=== PATIENT | male | born 1960 | race Caucasian/White ===

== ENCOUNTER 2016-10-17 04:42 | Observation (INO) | payer OTHER ==
[~2016-10-17] VITALS: Ht 193 cm; Wt 114.0 kg
--- NOTE | 2016-10-17 07:34 | DIAGNOSTIC IMAGING REPORT ---
PROCEDURE: CTA THORAX WITH CONTRAST INDICATION: SYNCOPE HIGH D-DIMER TECHNIQUE: 90 ml of Isovue 370 was injected intravenously and axial images were obtained of the chest with 3D sagittal and coronal MIP reconstructions. COMPARISON: Chest x-ray Performed the same day FINDINGS: Normal opacification of the pulmonary arterial tree without filling defect. The central pulmonary arteries are normal caliber. Thoracic aorta is normal caliber. The great vessels demonstrate a normal variant bovine arch are. Heart size is normal. No pericardial effusion. No adenopathy or mediastinal masses. The esophagus is normal in caliber without hiatal hernia. The thyroid gland contains a 9 mm nodule with coarse peripheral calcification in the lower pole of the left thyroid. Minor bibasilar atelectasis. Lungs are otherwise clear. The airway is patent and branches normally. No pleural effusions or pneumothorax. Osseous structures are intact. The images obtained of the upper abdomen and demonstrates multiple small dependently layering gallstones. Mild hepatic steatosis. IMPRESSION: 1. No pulmonary embolus. 2. No acute process in the chest. 3. 9 mm left lower pole thyroid nodule. Consider routine ultrasound evaluation. 4. Cholelithiasis. 5. Findings called to the emergency room.
--- NOTE | 2016-10-17 07:36 | DIAGNOSTIC IMAGING REPORT ---
PROCEDURE: XR CHEST 1 VIEW INDICATION: SHORTNESS OF BREATH TECHNIQUE: Single view chest. 05:37 hours COMPARISON: None FINDINGS: Normal cardiomediastinal contour. There is an azygos lobe fissure. Low lung volumes. Eventration of the right hemidiaphragm. The visible lung hartley are clear. Osseous structures are intact. IMPRESSION: 1. No evidence of acute cardiopulmonary disease.
--- NOTE | 2016-10-17 07:38 | ED ORDER SUMMARY ---
..... Patient: LORENZO SAVAGE OrderSheet [facility] VisitID: [id number] [address] [place] [address] 56y, M Registration Date/Time: 10/17/2016 ORDER SHEET Weight: 120.2 kg (stated) Allergies: No Known Drug Allergy GENERAL ORDERS: CBC w Diff Urgent (05:02 10/17/2016 DDavis R.N. per protocol) (5:02 DDavis R.N.) CMP Urgent (05:02 10/17/2016 DDavis R.N. per protocol) (5:02 DDavis R.N.) EKG - ER Stat (05:02 10/17/2016 DDavis R.N. per protocol) (Ack 5:03 DDavis R.N.) (5:05 CBradburn R.N.) - (orthostatic BP/P) (05:18 10/17/2016 Bakari GOODEN) (5:52 CBradburn R.N.) Troponin-I Urgent (05:19 10/17/2016 Bakari GOODEN) (5:20 CBradburn R.N.) CPK Urgent (05:19 10/17/2016 Bakari GOODEN) (5:22 CBradburn R.N.) Chest 1V Urgent (05:19 10/17/2016 Bakari GOODEN) (Ack 5:25 CHagerty ER Physical Trainer) (5:40 GUnger) TSH Urgent (05:19 10/17/2016 Bakari GOODEN) (5:22 CBradburn R.N.) TSH Urgent (05:19 10/17/2016 Bakari GOODEN) (Cancelled: Duplicate Order5:24 CHagerty ER Physical Trainer) CRP Urgent (05:19 10/17/2016 Bakari GOODEN) (5:25 CHagerty ER Physical Trainer) PCT (Procalcitonin) Urgent (05:19 10/17/2016 Bakari GOODEN) (5:20 CBradburn R.N.) D-Dimer Urgent (05:54 10/17/2016 Bakari GOODEN) (Ack 6:03 CHagerty ER Physical Trainer) (6:17 CBradburn R.N.) CTA Thorax w Cont (Yes) (pending) Urgent (06:19 10/17/2016 Bakari GOODEN) (Ack 6:24 Beka ER Physical Trainer) (6:37 Conchis Herring) CT Head wo Cont Urgent (07:42 10/17/2016 Bakari GOODEN) (Ack 7:44 [facility]) MEDICATION ORDERS: IV FLUIDS: IV Saline Lock (05:02 10/17/2016 Rebecca R.NJas per protocol) (5:02 Rebecca Berg.NJas) Toradol IV 30 mg (NOW) (07:38 10/17/2016 Bakari GOODEN) (7:45 Americo R.N.) Dilaudid IV 0.5 mg (NOW) (07:38 10/17/2016 Bakari GOODEN) (7:45 Americo R.N.) ORDER SHEET NOTES: [Electronically signed by Osmin Wilkinson MD (21:58 10/18/2016)] [Electronically signed by Nita Duran R.N. (10:52 10/20/2016)] [Electronically locked/signed by Nita Duran R.N. (10:52 10/20/2016)]
--- NOTE | 2016-10-17 07:38 | ED CLINICAL REPORT ---
Clinical Report - Physicians/Mid Levels [facility] [address] [place] [address] 10/17/2016 4:47 Patient: LORENZO SAVAGE Time Seen: 05:06 Oct 17 2016. Arrived- By private vehicle. Historian- patient. HISTORY OF PRESENT ILLNESS Chief Complaint: MULTIPLE SYNCOPAL EPISODES. The patient has recovered. This occurred today. (( pt got up about 3 am states he felt his BG was a little low, went to get juice and "passed out" then had 2 more syncopal episodes after that,). He has had several recent falling episodes (today). He sustained an injury to the chest. ( right rib pain, abrasion to forehead).). Event was witnessed. The patient had preceding symptoms of light-headedness. At time of event, he was standing. The patient felt faint and lost consciousness. Experienced repeated episodes. Location of injuries- chest. Currently he feels normal. No weakness currently. No nausea currently. No headache currently. Similar symptoms previously: None. Recent medical care: Not recently seen/assessed. REVIEW OF SYSTEMS No headache, chest pain, palpitations, abdominal pain or vomiting. No diarrhea, black stools, bloody stools or fever. No sore throat or throat, difficulty breathing or difficulty with urination. No skin rash or rash, enlarged lymph nodes, cough or diabetic symptoms. No easy bruising. The patient has had dizziness, weakness, and fatigue. All systems otherwise negative, except as recorded above. PAST HISTORY ( Hypertension. Diabetes Mellitus. - ADDITIONAL SURGERIES: Plantar facitis.). Medications: Acetaminophen-Codeine #3 Oral. Levothyroxine Sodium Oral 225 mcg, daily. HumaLOG Subcutaneous 15 units, before meals. Lantus Subcutaneous 30 units, noon. Losartan Potassium Oral, daily. Allergies: No Known Drug Allergy. SOCIAL HISTORY Heavy tobacco smoker (cigarette)- less than 1 pack per day. No alcohol use or drug use. ADDITIONAL NOTES The nursing notes have been reviewed. PHYSICAL EXAM Vital Signs: 10/17/2016 04:49 BP: 125/77. HR: 77. RR: 18. O2 saturation: 78%. Temp: 97.4 F. Pain level now: 7/10. Appearance: Alert. No acute distress. Eyes: Pupils equal, round and reactive to light. No nystagmus. Extraocular movements normal. ENT: Normal ENT inspection. TM's normal. Moist mucous membranes. Pharynx normal. Neck: Normal inspection. Neck supple. No meningeal signs. CVS: Normal heart rate and rhythm. Heart sounds normal. Pulses normal. No cardiac murmur. Respiratory: No respiratory distress. Breath sounds normal. Abdomen: Soft and nontender. Back: Normal inspection. Skin: Skin warm. Normal skin color. No rash. Extremities: Extremities exhibit normal ROM. No lower extremity edema. Neuro: Alert. Oriented X 3. Mood/affect normal. Speech normal. Cranial nerves normal (as tested). No cerebellar findings. No motor deficit. No sensory deficit. Reflexes normal. LABS, X-RAYS, AND EKG Chest X-ray: (cardiac fat pad vs infiltrate.). Views: AP (portable). Technique: good. The X-rays were independently viewed by me and interpreted contemporaneously by me. Prior films were not available for comparison. CT Head: No acute disease. Chest CT: Lungs normal. Great vessels normal. Mediastinum normal. (gallstones, small thyroid nodule appears benign.). Chest CT performed with contrast. The study was independently viewed by me, interpreted by the radiologist and discussed with the radiologist. Laboratory Tests: CBC w Diff: (YOHANA: 10/17/2016 04:55) ( MsgRcvd 10/17/2016 05:10) Final results Test Result Flag Units (Reference) WHITE BLOOD COUNT 9.9 K/uL (4.5-11.5) RED BLOOD COUNT 4.92 M/uL (4.50-5.90) HEMOGLOBIN 15.1 gm/dL (13.5-17.5) HEMATOCRIT 44.9 % (41.0-53.0) MEAN CELL VOLUME 91 fL (80-100) MEAN CORPUSCULAR HGB 31 pg (26-34) MEAN CORPUSCULAR HGB CONC 34 g/dL (31-37) RED CELL DISTRIBUTION WIDTH 13.5 % (11.6-14.8) PLATELET COUNT 167 K/uL (150-400) NEUTROPHIL % 71.9 % (50-75) LYMPH % 19.7 L % (25-40) MONO % 6.4 % (3-14) EOSINOPHIL % 1.6 % (0-4) BASOPHIL % 0.4 % (0-2) [id number]: (YOHANA: 10/17/2016 04:55) ( [facility] 10/17/2016 06:12) Final results Test Result Flag Units (Reference) D-DIMER QUANTITATIVE 1.08 H ug/mLFEU (0.27-0.52) The primary value of this quantitative assay relates toits negative predictive value (i.e. exclusion) of pulmonaryembolism/deep vein thrombosis/DIC.Elevated levels of d-dimer may also occur with:, age, cancer, inflammation, liver disease,post-op, infection, hematoma, coronary disease, peripheralarteriopathy, bleeding disorders and thrombolytic treatment.Results should be correlated with other clinical andradiological data.Testing Methodology: Latex Immunoassay [id number]: (YOHANA: 10/17/2016 04:55) ( [facility] 10/17/2016 05:41) Final results Test Result Flag Units (Reference) C-REACTIVE PROTEIN < 0.2 mg/dL (0.0-0.9) [id number]: (YOHANA: 10/17/2016 04:55) ( [facility] 10/17/2016 06:05) Final results Test Result Flag Units (Reference) PROCALCITONIN <0.5 ng/mL (0-0.5) PCT Concentration: Interpretation : Risk/option for action PCT <=0.5 ng/mL : Systemic : Low risk forinfection(sepsis): progression to severeis not likely. : systemic infection.Local bacterial : CAUTION-PCT levelsinfection is : below 0.5 ng/mL do notpossible. : exclude an infection,because localizedinfections (withoutsystemic signs) may beassociated with suchlow levels. If PCT ismeasured very earlyafter a bacterialchallenge (usually <6hours), these valuesmay still be low. Inthis case PCT shouldbe re-assessed 6-24hours later. PCT >0.5 and : Systemic infection: Moderate risk for<= 2 ng/mL : (sepsis) is : progression to severepossible, but : systemic infection.other conditions : The patient should beare known to : closely monitoredelevate PCT. : both clinically andby re-assessing PCTwithin 6-24 hours. PCT > 2 ng/mL : Systemic infection: High risk for(sepsis) is likely: progression to severeunless other : systemic infection.causes are known. : PCT >= 10 ng/mL : Important systemic: High likelihood ofinflammatory : severe sepsis orresponse, almost : septic shock.exclusively due to:severe bacterial :sepsis or septic :shock. : TSH: (YOHANA: 10/17/2016 04:55) ( MsgRcvd 10/17/2016 05:44) Final results Test Result Flag Units (Reference) THYROID STIMULATING HORMONE 10.694 H uIU/mL (0.30-3.74) CPK: (YOHANA: 10/17/2016 04:55) ( IngRcvd 10/17/2016 05:44) Final results Test Result Flag Units (Reference) CPK 160 U/L (24-260) TROPONIN I <0.05 L ng/mL (0.00-1.5) TROPONIN REFERENCE RANGE:<0.1 NEGATIVE0.1-1.5 INDETERMINANT>1.5 POSITIVE CMP: (YOHANA: 10/17/2016 04:55) ( MsgRcvd 10/17/2016 05:22) Final results Test Result Flag Units (Reference) GLUCOSE 234 H mg/dL (70-110) BUN 18 mg/dL (7-18) CREATININE 1.2 mg/dL (0.6-1.3) Estimated GFR >60 mL/min Estimated GFR- >60 mL/min Note: Persistent reduction over 3 months in eGFR<60 mL/min/1.73 m2 defines CKD. Patients with eGFR values>=60 mL/min/1.73 m2 may also have CKD if evidence ofpersistent proteinuria. Additional information may be foundat www.kidney.org. SODIUM 140 mmol/L (136-145) POTASSIUM 3.8 mmol/L (3.5-5.1) CHLORIDE 101 mmol/L (98-107) CARBON DIOXIDE 28 mmol/L (21-32) CALCIUM 8.5 mg/dL (8.5-10.1) TOTAL PROTEIN 7.3 g/dL (6.4-8.2) ALBUMIN 3.9 g/dL (3.3-5.0) BILIRUBIN, TOTAL 0.7 mg/dL (0.0-1.0) ALKALINE PHOSPHATASE 55 U/L (46-116) AST (SGOT) 17 U/L (15-37) ALT (SGPT) 29 U/L (12-78) . PROGRESS AND PROCEDURES Course of Care: Not orthostatic Cardiopulmonary work-up and blood/urine results show no definitve reason for multiple episodes of syncope. Will admit for further observation. Dr Lazcano requests a CT of the head. Ordered on T system. Discussed case with on-call health care provider, (Neno). Reviewed test results. Agreed upon treatment plan and decision to admit. Health care provider will see patient in ED. Patient/family counseled. Old medical records ordered. Disposition orders written. Disposition: Admitted to Acute Care. CLINICAL IMPRESSION Syncope of unknown cause .12 lead EKG performed. (Electronically signed by Osmin Wilkinson MD 10/18/2016 21:58)
--- NOTE | 2016-10-17 07:38 | ED ORDER SUMMARY ---
..... Patient: LORENZO SAVAGE OrderSheet [facility] VisitID: [id number] [address] [place] [address] 56y, M Registration Date/Time: 10/17/2016 ORDER SHEET Weight: 120.2 kg (stated) Allergies: No Known Drug Allergy GENERAL ORDERS: CBC w Diff Urgent (05:02 10/17/2016 DDavis R.N. per protocol) (5:02 DDavis R.N.) CMP Urgent (05:02 10/17/2016 DDavis R.N. per protocol) (5:02 DDavis R.N.) EKG - ER Stat (05:02 10/17/2016 DDavis R.N. per protocol) (Ack 5:03 DDavis R.N.) (5:05 CBradburn R.N.) - (orthostatic BP/P) (05:18 10/17/2016 Bakari GOODEN) (5:52 CBradburn R.N.) Troponin-I Urgent (05:19 10/17/2016 Bakari GOODEN) (5:20 CBradburn R.N.) CPK Urgent (05:19 10/17/2016 Bakari GOODEN) (5:22 CBradburn R.N.) Chest 1V Urgent (05:19 10/17/2016 Bakari GOODEN) (Ack 5:25 CHagerty ER General Production Worker) (5:40 GUnger) TSH Urgent (05:19 10/17/2016 Bakari GOODEN) (5:22 CBradburn R.N.) TSH Urgent (05:19 10/17/2016 Bakari GOODEN) (Cancelled: Duplicate Order5:24 CHagerty ER General Production Worker) CRP Urgent (05:19 10/17/2016 Bakari GOODEN) (5:25 CHagerty ER General Production Worker) PCT (Procalcitonin) Urgent (05:19 10/17/2016 Bakari GOODEN) (5:20 CBradburn R.N.) D-Dimer Urgent (05:54 10/17/2016 Bakari GOODEN) (Ack 6:03 CHagerty ER General Production Worker) (6:17 CBradburn R.N.) CTA Thorax w Cont (Yes) (pending) Urgent (06:19 10/17/2016 Bakari GOODEN) (Ack 6:24 Beka ER General Production Worker) (6:37 Conchis Herring) CT Head wo Cont Urgent (07:42 10/17/2016 Bakari GOODEN) (Ack 7:44 [facility]) MEDICATION ORDERS: IV FLUIDS: IV Saline Lock (05:02 10/17/2016 Rebecca R.NJas per protocol) (5:02 Rebecca Berg.NJas) Toradol IV 30 mg (NOW) (07:38 10/17/2016 Bakari GOODEN) (7:45 Americo R.N.) Dilaudid IV 0.5 mg (NOW) (07:38 10/17/2016 Bakari GOODEN) (7:45 Americo R.N.) ORDER SHEET NOTES: [Electronically signed by Osmin Wilkinson MD (21:58 10/18/2016)] [Electronically signed by Nita Duran R.N. (10:52 10/20/2016)] [Electronically locked/signed by Nita Duran R.N. (10:52 10/20/2016)]
--- NOTE | 2016-10-17 07:38 | ED NURSING NOTES ---
Clinical Report - Nurses [facility] [address] [place] [address] 10/17/2016 4:47 Patient: LORENZO SAVAGE TRIAGE Triage time 04:49. Acuity: LEVEL 2. Chief Complaint: SYNCOPE (x 3 in 1 hour). --05:01 Tiana Corea R.N. 04:49 10/17/16. BP: 125/77 taken on the left arm, while lying. HR: 77 (regular and normal rate). RR: 18. O2 saturation: 78%. Temp: 97.4 F. Pain level now: 12/08. --05:01 Tiana Corea R.N. Weight: 120.2 kg stated. Height/Length: 76 inches Per Patient. BMI: 32.3. --04:52 Tiana Corea R.N. Medications Losartan Potassium Oral, daily. --04:53 Tiana Corea R.N. Lantus Subcutaneous 30 units, noon. --04:53 Tiana Corea R.N. HumaLOG Subcutaneous 15 units, before meals. --04:54 Tiana Corea R.N. Levothyroxine Sodium Oral 225 mcg, daily. --04:55 Tiana Corea R.N. Acetaminophen-Codeine #3 Oral. --04:56 Tiana Corea R.N. Allergies No Known Drug Allergy. --04:57 Tiana Corea R.N. History Arrived by private vehicle. Historian: patient. Accompanied by family. Primary physician (none). This started today. ( pt got up about 3 am states he felt his BG was a little low, went to get juice and "passed out" then had 2 more syncopal episodes after that,). He has had several recent falling episodes (today). He sustained an injury to the chest. ( right rib pain, abrasion to forehead). SOCIAL HX: Heavy tobacco smoker (cigarette)- 1 pack per day. No alcohol use or drug use. No infectious disease exposure. ABUSE ASSESSMENT: No report of abuse. SELF HARM ASSESSMENT: A self harm assessment was performed. The patient answered "no" to the question "Have you recently felt down, depressed, or hopeless?", "Have you noticed less interest or pleasure in doing things?", "Do you have thoughts of harming or killing yourself?", "Are you here because you tried to hurt yourself?", "Have you ever tried to hurt yourself before today?", "Have you recently had thoughts about harming or killing others?" and "Do you have any dangerous items in your possession?". FALL RISK ASSESSMENT: Fall risk assessment completed. No fall risk identified. NUTRITIONAL RISK ASSESSMENT: The nutritional risk assessment revealed no deficiencies. FUNCTIONAL ASSESSMENT: Functional assessment: no impairments noted. LEARNING NEEDS ASSESSMENT: The learning needs assessment revealed no barriers. SKIN INTEGRITY ASSESSMENT: Skin integrity risk assessment completed. No skin integrity risk identified. --05:01 Tiana Corea R.N. PROBLEMS: Hypertension. Diabetes Mellitus. --04:58 Tiana Corea R.N. ADDITIONAL SURGERIES: Plantar facitis. --04:58 Tiana Corea R.N. Interventions ID band on patient. --05:01 Tiana Corea R.N. PHYSICAL ASSESSMENT To room via wheelchair. Baseline functional status: usually alert and oriented x4. Verbal response: usually clear and appropriate. Motor response: usually steady gait and moves all extremities equally GENERAL / NEURO / PSYCH: Awake. Oriented X 4. Alert. Appears in no acute distress. Speech normal. Mood/affect normal. Moves all extremities equally. No motor deficit. HEENT: No facial asymmetry noted. Pupils equal, round and reactive to light. EOM intact. Pharynx within normal limits. RESPIRATORY: Breath sounds within normal limits. Respirations not labored. CVS: Normal sinus rhythm noted. Capillary refill less than 2 seconds. SKIN: Skin is intact, warm and dry. --05:02 Tiana Corea R.N. NURSING PROGRESS NOTES Patient gowned. Two patient identifiers checked. Call light placed in reach. Side rails up x 2. Bed placed in lowest position. Brakes of bed on. --05:02 Tiana Corea R.N. Finger stick glucose: 232; performed by nurse. --05:02 Tiana Corea R.N. Patient ready for evaluation- chart flagged. --05:02 Tiana Corea R.N. 04:55 10/17/2016 Site #1 started via IV in the right antecubital space with an 20g angiocath, with aseptic technique and good blood return; one attempt. Blood drawn: rainbow set. Labeled in the presence of the patient and sent to the lab. Saline lock flushed with 10 mL saline. --05:02 Mor Jiang R.N. ED physician notified. --05:03 Mor Jiang R.N. EKG time: (0501). EKG was performed by a tech and shown to the ED physician. --05:27 Mei Diallo 05:52 10/17/16. BP: 98/56 taken on the left arm, while lying. HR: 85. O2 saturation: 100%. --05:54 Tiana Corea R.N. 05:55 10/17/16. BP: 108/65 taken on the left arm, while sitting. HR: 86. O2 saturation: 97%. --05:56 Tiana Corea R.N. 05:56 10/17/16. BP: 110/70 taken on the left arm, while standing. HR: 90 (regular). O2 saturation: 98% on room air. --05:59 Tiana Corea R.N. Overall patient status is the same- he states feels the same. GENERAL / NEURO / PSYCH: Alert. Oriented X 4. Affect appears normal. HEENT: Pupils equal, round and reactive to light. RESPIRATORY: No respiratory distress. SKIN: Skin is warm and dry. --05:59 Tiana Corea R.N. 06:33 10/17/16. BP: 113/75. HR: 82. RR: 18. O2 saturation: 98% on room air. Temp: deferred. Pain level now: 0/10. --06:36 Tiana Corea R.N. Patient transported to [place] by stretcher with tech. (06:35). --06:36 Tiana Corea R.N. Care transferred and report given (Ngozi SIMS). --07:20 Tiana Corea R.N. 07:45 10/17/2016 Toradol IVP 30 mg given over 2 minute(s) via site #1. Allergies verified and confirmed 5 rights. IV patency established. IV site checked: no pain, redness, or swelling. IV flushed thoroughly pre- and post-medication administration. --07:45 Ngozi Duran R.N. 07:45 10/17/2016 Dilaudid (HYDROmorphone HCl PF) IVP 0.5 mg given over 2 minute(s) via site #1. Allergies verified, confirmed 5 rights and sedative warning given to the patient and patient's roto mixer operator. IV patency established. IV site checked: no pain, redness, or swelling. IV flushed thoroughly pre- and post-medication administration. --07:45 Ngozi Duran R.N. 07:50 10/17/16. BP: 117/70. HR: 86. RR: 18. O2 saturation: 98%. Temp: 98.4 F. Pain level now 12/08. --07:50 Ngozi Duran R.N. ( H&P form given to patients who was at bedside to help fill out.). --08:19 Nazia May 09:04 10/17/16. BP: 114/66. HR: 82. RR: 18. O2 saturation: 96%. Temp: 98.6 F. Pain level now 09/08. --09:06 Ngozi Duran R.N. ( Report given to Latoya LEE). --09:23 Ngozi Duran R.N. 10:21 10/17/2016 Site #1 removed upon transfer. Catheter intact. Pressure dressing applied. --10:21 Ngozi Duran R.N. DISPOSITION / DISCHARGE Departure time: 10:00 Oct 17 2016. Condition at departure: improved. Admitted to Acute Care. --10:20 Ngozi Duran R.N. 10:18 10/17/16. BP: 107/61. HR: 86. RR: 18. O2 saturation: 98%. Temp: 98.6 F. Pain level now: 09/08. --10:20 Ngozi Duran R.N. Locked/Released at 10/20/2016 10:52 by Ngozi Duran R.N.
--- NOTE | 2016-10-17 07:38 | ED CLINICAL REPORT ---
Clinical Report - Physicians/Mid Levels [facility] [address] [place] [address] 10/17/2016 4:47 Patient: LORENZO SAVAGE Time Seen: 05:06 Oct 17 2016. Arrived- By private vehicle. Historian- patient. HISTORY OF PRESENT ILLNESS Chief Complaint: MULTIPLE SYNCOPAL EPISODES. The patient has recovered. This occurred today. (( pt got up about 3 am states he felt his BG was a little low, went to get juice and "passed out" then had 2 more syncopal episodes after that,). He has had several recent falling episodes (today). He sustained an injury to the chest. ( right rib pain, abrasion to forehead).). Event was witnessed. The patient had preceding symptoms of light-headedness. At time of event, he was standing. The patient felt faint and lost consciousness. Experienced repeated episodes. Location of injuries- chest. Currently he feels normal. No weakness currently. No nausea currently. No headache currently. Similar symptoms previously: None. Recent medical care: Not recently seen/assessed. REVIEW OF SYSTEMS No headache, chest pain, palpitations, abdominal pain or vomiting. No diarrhea, black stools, bloody stools or fever. No sore throat or throat, difficulty breathing or difficulty with urination. No skin rash or rash, enlarged lymph nodes, cough or diabetic symptoms. No easy bruising. The patient has had dizziness, weakness, and fatigue. All systems otherwise negative, except as recorded above. PAST HISTORY ( Hypertension. Diabetes Mellitus. - ADDITIONAL SURGERIES: Plantar facitis.). Medications: Acetaminophen-Codeine #3 Oral. Levothyroxine Sodium Oral 225 mcg, daily. HumaLOG Subcutaneous 15 units, before meals. Lantus Subcutaneous 30 units, noon. Losartan Potassium Oral, daily. Allergies: No Known Drug Allergy. SOCIAL HISTORY Heavy tobacco smoker (cigarette)- less than 1 pack per day. No alcohol use or drug use. ADDITIONAL NOTES The nursing notes have been reviewed. PHYSICAL EXAM Vital Signs: 10/17/2016 04:49 BP: 125/77. HR: 77. RR: 18. O2 saturation: 78%. Temp: 97.4 F. Pain level now: 7/10. Appearance: Alert. No acute distress. Eyes: Pupils equal, round and reactive to light. No nystagmus. Extraocular movements normal. ENT: Normal ENT inspection. TM's normal. Moist mucous membranes. Pharynx normal. Neck: Normal inspection. Neck supple. No meningeal signs. CVS: Normal heart rate and rhythm. Heart sounds normal. Pulses normal. No cardiac murmur. Respiratory: No respiratory distress. Breath sounds normal. Abdomen: Soft and nontender. Back: Normal inspection. Skin: Skin warm. Normal skin color. No rash. Extremities: Extremities exhibit normal ROM. No lower extremity edema. Neuro: Alert. Oriented X 3. Mood/affect normal. Speech normal. Cranial nerves normal (as tested). No cerebellar findings. No motor deficit. No sensory deficit. Reflexes normal. LABS, X-RAYS, AND EKG Chest X-ray: (cardiac fat pad vs infiltrate.). Views: AP (portable). Technique: good. The X-rays were independently viewed by me and interpreted contemporaneously by me. Prior films were not available for comparison. CT Head: No acute disease. Chest CT: Lungs normal. Great vessels normal. Mediastinum normal. (gallstones, small thyroid nodule appears benign.). Chest CT performed with contrast. The study was independently viewed by me, interpreted by the radiologist and discussed with the radiologist. Laboratory Tests: CBC w Diff: (YOHANA: 10/17/2016 04:55) ( MsgRcvd 10/17/2016 05:10) Final results Test Result Flag Units (Reference) WHITE BLOOD COUNT 9.9 K/uL (4.5-11.5) RED BLOOD COUNT 4.92 M/uL (4.50-5.90) HEMOGLOBIN 15.1 gm/dL (13.5-17.5) HEMATOCRIT 44.9 % (41.0-53.0) MEAN CELL VOLUME 91 fL (80-100) MEAN CORPUSCULAR HGB 31 pg (26-34) MEAN CORPUSCULAR HGB CONC 34 g/dL (31-37) RED CELL DISTRIBUTION WIDTH 13.5 % (11.6-14.8) PLATELET COUNT 167 K/uL (150-400) NEUTROPHIL % 71.9 % (50-75) LYMPH % 19.7 L % (25-40) MONO % 6.4 % (3-14) EOSINOPHIL % 1.6 % (0-4) BASOPHIL % 0.4 % (0-2) [id number]: (YOHANA: 10/17/2016 04:55) ( [facility] 10/17/2016 06:12) Final results Test Result Flag Units (Reference) D-DIMER QUANTITATIVE 1.08 H ug/mLFEU (0.27-0.52) The primary value of this quantitative assay relates toits negative predictive value (i.e. exclusion) of pulmonaryembolism/deep vein thrombosis/DIC.Elevated levels of d-dimer may also occur with:, age, cancer, inflammation, liver disease,post-op, infection, hematoma, coronary disease, peripheralarteriopathy, bleeding disorders and thrombolytic treatment.Results should be correlated with other clinical andradiological data.Testing Methodology: Latex Immunoassay [id number]: (YOHANA: 10/17/2016 04:55) ( [facility] 10/17/2016 05:41) Final results Test Result Flag Units (Reference) C-REACTIVE PROTEIN < 0.2 mg/dL (0.0-0.9) [id number]: (YOHANA: 10/17/2016 04:55) ( [facility] 10/17/2016 06:05) Final results Test Result Flag Units (Reference) PROCALCITONIN <0.5 ng/mL (0-0.5) PCT Concentration: Interpretation : Risk/option for action PCT <=0.5 ng/mL : Systemic : Low risk forinfection(sepsis): progression to severeis not likely. : systemic infection.Local bacterial : CAUTION-PCT levelsinfection is : below 0.5 ng/mL do notpossible. : exclude an infection,because localizedinfections (withoutsystemic signs) may beassociated with suchlow levels. If PCT ismeasured very earlyafter a bacterialchallenge (usually <6hours), these valuesmay still be low. Inthis case PCT shouldbe re-assessed 6-24hours later. PCT >0.5 and : Systemic infection: Moderate risk for<= 2 ng/mL : (sepsis) is : progression to severepossible, but : systemic infection.other conditions : The patient should beare known to : closely monitoredelevate PCT. : both clinically andby re-assessing PCTwithin 6-24 hours. PCT > 2 ng/mL : Systemic infection: High risk for(sepsis) is likely: progression to severeunless other : systemic infection.causes are known. : PCT >= 10 ng/mL : Important systemic: High likelihood ofinflammatory : severe sepsis orresponse, almost : septic shock.exclusively due to:severe bacterial :sepsis or septic :shock. : TSH: (YOHANA: 10/17/2016 04:55) ( MsgRcvd 10/17/2016 05:44) Final results Test Result Flag Units (Reference) THYROID STIMULATING HORMONE 10.694 H uIU/mL (0.30-3.74) CPK: (YOHANA: 10/17/2016 04:55) ( RigRcvd 10/17/2016 05:44) Final results Test Result Flag Units (Reference) CPK 160 U/L (24-260) TROPONIN I <0.05 L ng/mL (0.00-1.5) TROPONIN REFERENCE RANGE:<0.1 NEGATIVE0.1-1.5 INDETERMINANT>1.5 POSITIVE CMP: (YOHANA: 10/17/2016 04:55) ( MsgRcvd 10/17/2016 05:22) Final results Test Result Flag Units (Reference) GLUCOSE 234 H mg/dL (70-110) BUN 18 mg/dL (7-18) CREATININE 1.2 mg/dL (0.6-1.3) Estimated GFR >60 mL/min Estimated GFR- >60 mL/min Note: Persistent reduction over 3 months in eGFR<60 mL/min/1.73 m2 defines CKD. Patients with eGFR values>=60 mL/min/1.73 m2 may also have CKD if evidence ofpersistent proteinuria. Additional information may be foundat [email or web address]. SODIUM 140 mmol/L (136-145) POTASSIUM 3.8 mmol/L (3.5-5.1) CHLORIDE 101 mmol/L (98-107) CARBON DIOXIDE 28 mmol/L (21-32) CALCIUM 8.5 mg/dL (8.5-10.1) TOTAL PROTEIN 7.3 g/dL (6.4-8.2) ALBUMIN 3.9 g/dL (3.3-5.0) BILIRUBIN, TOTAL 0.7 mg/dL (0.0-1.0) ALKALINE PHOSPHATASE 55 U/L (46-116) AST (SGOT) 17 U/L (15-37) ALT (SGPT) 29 U/L (12-78) . PROGRESS AND PROCEDURES Course of Care: Not orthostatic Cardiopulmonary work-up and blood/urine results show no definitve reason for multiple episodes of syncope. Will admit for further observation. Dr Lazcano requests a CT of the head. Ordered on T system. Discussed case with on-call health care provider, (Neno). Reviewed test results. Agreed upon treatment plan and decision to admit. Health care provider will see patient in ED. Patient/family counseled. Old medical records ordered. Disposition orders written. Disposition: Admitted to Acute Care. CLINICAL IMPRESSION Syncope of unknown cause .12 lead EKG performed. (Electronically signed by Osmin Wilkinson MD 10/18/2016 21:58)
--- NOTE | 2016-10-17 08:33 | DIAGNOSTIC IMAGING REPORT ---
PROCEDURE: CT HEAD WITHOUT CONTRAST INDICATION: SYNCOPE TECHNIQUE: Axial CT images were acquired through the head. Coronal and sagittal reformations were created. Contrast present in the intracranial vessels due to prior study performed earlier the same day. COMPARISON: None. FINDINGS: No intracranial hemorrhage or extraaxial fluid collections. Ventricles are normal in size, shape and position. There is no mass, mass effect or midline shift. The mosley-white matter differentiation is normal. There is no edema. The calvarium is intact. The paranasal sinuses and mastoid air cells are normally aerated. The extracranial soft tissues and orbits are normal. IMPRESSION: 1. No CT evidence of acute intracranial process. 2. Findings discussed with Dr. Wilkinson at 08:[address] scans at this facility use dose modulation, iterative reconstruction, and/or weight-based dosing when appropriate to reduce radiation dose to as low as reasonably achievable.
[2016-10-17 10:55] VITALS: BP 119/75
--- NOTE | 2016-10-17 10:55 | NUR ---
PT ARRIVED TO ROOM 204-B FROM ED ALERT, APPROPRIATE AND COOPERATIVE.
--- NOTE | 2016-10-17 10:58 | HISTORY AND PHYSICAL ---
ADMITTED: 10/17/2016 CHIEF COMPLAINT: Syncope HISTORY OF PRESENT ILLNESS: This is a 56-year-old white male who woke up at 3 a.m. last night and tried to go to the bathroom, but felt a little bit lightheaded and had to hold on the goodwin. He made it to the bathroom but later on he finds himself on the floor, able to get up in the bathroom, but passed out again in the bathtub, was found by his and was able to walk by help of his to the bed, but after a while and drinking some orange juice, the patient went outside to smoke cigarette, but passed out again, hit his forehead and this at the time that the patient called ambulance was transferred to the emergency department. The patient stated he felt sweaty, but no shakiness, did not feel hungry, but had tingling all over his body. No palpitation, no chest pain. No headaches. No blurred vision. No tinnitus and no localized weakness. No blurred vision. The patient thinks that this is due to hypoglycemia because of similar symptoms when his blood glucose goes down, but he did not check his blood sugar. The last blood sugar he checked was at 11 p.m., it was 92. MEDICAL/SURGICAL HISTORY: Past medical history: Remarkable for diabetes mellitus and hypothyroidism. Surgical history: None. Hospitalization: None. MEDICATIONS: 1. Losartan, dosage is not known 2. Lantus insulin 30 units at noon. 3. Humalog 15 units with meals. 4. Levoxyl 225 mcg once a day. 5. Tylenol No. 3 as needed. ALLERGIES: 1. NO KNOWN DRUG ALLERGY. SOCIAL HISTORY: The patient is single, but lives with his girlfriend. Has 2 kids. Smoked 1 pack a day for 6 months. No history of alcohol or drug abuse. The patient works at [employer]. FAMILY HISTORY: Remarkable for stroke, diabetes and esophageal cancer. REVIEW OF SYSTEMS: No recent weight changes. No difficulty with vision or hearing. No runny nose or congestion, no cough or sore throat. No shortness of breath. No nausea, no vomiting, no abdominal pain. No indigestion. Normal regular bowel movements. No dysuria, frequency or incontinence. No arthralgia or myalgia. No headaches. No localized weakness. PHYSICAL EXAMINATION: VITAL SIGNS: Blood pressure 125/77, heart rate is 77, respirations 18, oxygen saturation recorded as 78% on room air. I have to check on that, and temperature is 97.4. HEAD AND NECK: Ears: Normal tympanic membranes. Nose: Normal mucosa. Mouth: Normal hypopharynx, no exudation, no erythema. Neck: Supple. No JVD. No carotid bruit. No palpable mass. SKIN: Warm and dry with good turgor. LUNGS: Clear to auscultation. No rhonchi or wheezing or crackles. HEART: Regular S1, S2. No murmur, no S3 was heard. ABDOMEN: Soft, nontender. Bowel sounds are positive. No organomegaly was appreciated. EXTREMITIES: No edema. Good peripheral pulses. No signs of DVT or cyanosis. MUSCULOSKELETAL: Grossly within normal limits. NEUROLOGIC: Alert and oriented x3. Cranial nerves are grossly intact. No motor deficits. Pupils are round and reactive to light and equal, no nystagmus. No cerebellar signs. Deep tendon reflexes are bilateral and symmetric. LAB/IMAGING: EKG is normal sinus rhythm. Chest x-ray was unremarkable. Due to high D-Dimer, the patient had a CT angiogram, which was negative. White blood count is 9.9, hemoglobin is 15.1, hematocrit 44.9, and platelet count is 167. D- Dimer was 10.8. C-reactive is less than 0.2. Prolactin less than 0.5. TSH was 10.6. CPK is normal. Troponin is less than 0.05. Glucose is 234, BUN is 18, creatinine is 1.2, sodium is 140, potassium 3.8, chloride is 101, CO2 is 28, calcium is 8.5. Liver enzymes unremarkable. IMPRESSION: 1. Multiple syncope. 2. Diabetes mellitus. 3. Hypothyroidism. PLAN: We also ordered a CT of the head, which is being read by the radiologist. This is most probably due to hypoglycemia, my guess, and I told the patient that next time this happens to make sure he checks his blood sugar first thing. The patient will be on acute care telemetry and will monitor heart rhythm and also we will do neuro check and also we will do a Doppler of the carotids. The patient will be on observation, might need a stress test as an outpatient.
[2016-10-17] MEDS ORDERED: LANTUS SOL100 UNITS/ SC (11:10)
[2016-10-17] MEDS ORDERED: SYNTHROID200 MCG PO (11:11)
[2016-10-17] MEDS ORDERED: COZAAR25 MG PO (11:13)
[2016-10-17] MEDS ORDERED: PRAVACHOL20 MG (11:14)
--- NOTE | 2016-10-17 12:18 | DIAGNOSTIC IMAGING REPORT ---
PROCEDURE: US BILATERAL CAROTID DOPPLER INDICATION: syncope TECHNIQUE: Color Doppler duplex imaging of the carotid and vertebral vessels. COMPARISON: None. FINDINGS: Right carotid system: No significant stenosis visualized. The waveforms are normal. Left carotid system: No significant stenosis visualized. The waveforms are normal. Vertebral System: Antegrade vertebral artery flow bilaterally. Right common carotid artery peak systolic velocity 134 cm/second. Right internal carotid artery peak systolic velocity 107 cm/second. Right external carotid artery peak systolic velocity 192 cm/second. Right ypdnzrsw-wq-iazwzs carotid artery ratio 1.0 Right vertebral artery peak systolic velocity 39 cm/second. Left common carotid artery peak systolic velocity 144 cm/second. Left internal carotid artery peak systolic velocity 118 cm/second. Left external carotid artery peak systolic velocity 130 cm/second. Left ykvrmkza-cq-hglixe carotid artery ratio 0.9 Left vertebral artery peak systolic velocity 44 cm/second. IMPRESSION: 1. No hemodynamically significant stenosis in either carotid system. 2. Antegrade vertebral artery flow bilaterally. 3. Cardiac arrhythmia. 4. Enlarged heterogeneous thyroid with a calcified anechoic area that measures 11 mm Velocity criteria are extrapolated from diameter data as defined by the Society of Radiologists in Ultrasound Consensus Conference, Radiology 2003; 229; 340-346.
--- NOTE | 2016-10-17 12:18 | DIAGNOSTIC IMAGING REPORT ---
PROCEDURE: US BILATERAL CAROTID DOPPLER INDICATION: syncope TECHNIQUE: Color Doppler duplex imaging of the carotid and vertebral vessels. COMPARISON: None. FINDINGS: Right carotid system: No significant stenosis visualized. The waveforms are normal. Left carotid system: No significant stenosis visualized. The waveforms are normal. Vertebral System: Antegrade vertebral artery flow bilaterally. Right common carotid artery peak systolic velocity 134 cm/second. Right internal carotid artery peak systolic velocity 107 cm/second. Right external carotid artery peak systolic velocity 192 cm/second. Right navlrcua-xf-lrzxtm carotid artery ratio 1.0 Right vertebral artery peak systolic velocity 39 cm/second. Left common carotid artery peak systolic velocity 144 cm/second. Left internal carotid artery peak systolic velocity 118 cm/second. Left external carotid artery peak systolic velocity 130 cm/second. Left hzygfvwi-fk-rkzqvd carotid artery ratio 0.9 Left vertebral artery peak systolic velocity 44 cm/second. IMPRESSION: 1. No hemodynamically significant stenosis in either carotid system. 2. Antegrade vertebral artery flow bilaterally. 3. Cardiac arrhythmia. 4. Enlarged heterogeneous thyroid with a calcified anechoic area that measures 11 mm Velocity criteria are extrapolated from diameter data as defined by the Society of Radiologists in Ultrasound Consensus Conference, Radiology 2003; 229; 340-346.
[2016-10-17 14:35] VITALS: BP 115/67
[2016-10-17 18:15] VITALS: BP 126/101
--- NOTE | 2016-10-17 19:00 | NUR ---
PT'S BLOOD GLUCOSES HAVE BEEN GREATER THAN 300, WHEN SLIDING SCALE WAS ABOUT TO BE GIVEN OF 10 UNITS SHORT LASTING INSULIN HE STATED THAT AT HOME HE WOULD TAKE 20 UNITS FOR THIS HIGH OF A GLUCOSE. DR OCAMPO WAS NOTIFIED OF THIS AND HE INCRESAED PT TO A MEDIUM SCALE COVERAGE, WHICH WOULD GIVE HIM 12 UNITS. PT WAS STILL NOT HAPPY WITH THIS BUT I EXPLAINED TO HIM THAT WE WOULD BE RECHECKING HIS GLUCOSE AT BEDTIME AND COULD GIVE HIM SOME MORE AT THAT TIME. THIS SEEMED TO SATISFY HIM FOR THE TIME.
[2016-10-17 19:22] VITALS: BP 107/65
--- NOTE | 2016-10-17 19:48 | NUR ---
I discussed with the patient their current medications, possible side effects, and answered questions.
--- NOTE | 2016-10-17 22:31 | NUR ---
PT REPORTING PAIN 8/10 THIS EVENING THAT WAS NOT BEING CONTROLLED WITH IBUPROFEN. NOTIFIED DR. MILLER AND IV MORPHINE WAS ORDERED FOR PT. CONTINUING TO MONITOR PT NEURO STATUS WELL, A&O X 3 WITH NO FURTHER EPISODES OF SYNCOPE.
[2016-10-17 23:07] VITALS: BP 93/50
--- NOTE | 2016-10-18 01:15 | NUR ---
PTS SLIDING SCALE INSULIN WAS PUT INTO COMPUTER BID, WITH ACCUCHECKS AT [facility]. DISCUSSED THIS WITH DR. MILLER AND HE GAVE A VERBAL ORDER TO CHANGE THE ORDER TO [facility] MEDIUM DOSE SLIDING SCALE INSULIN.
[2016-10-18 02:20] VITALS: BP 93/57
--- NOTE | 2016-10-18 02:38 | NUR ---
PT BP HAS BEEN TRENDING DOWN SINCE ADMISSION TO THE FLOOR WITH LAST READING OF 93/[address] MILLER NOTIFIED AND RECEIVED VERBAL ORDER TO START PT ON NS @ 1OOMLS/HR.
[2016-10-18 04:09] VITALS: BP 113/75
[2016-10-18 07:06] VITALS: BP 119/78
[2016-10-18] MEDS ORDERED: TYLENOL/CODEINE #3 PO (09:28)
--- NOTE | 2016-10-18 09:56 | NUR ---
DISCHARGE EDUCATION COMPLETED. PT STATED UNDERSTANDING. IV SITE REMOVED INTACT. PT IS STABLE. DENIES DIZZINESS WITH AMBULATION. PT DC'D TO HOME WITH S.O.
--- NOTE | 2016-10-18 11:01 | DISCHARGE SUMMARY ---
ADMIT DATE: 10/17/2016 DISCHARGE DATE: 10/18/2016 DISCHARGE DIAGNOSES: 1. Syncope. 2. Diabetes mellitus 3. Hypothyroidism. HISTORY OF PRESENT ILLNESS: This is a 56-year-old white male who woke up at 3 a.m. on the date of admission and tried to go to the bathroom, but felt lightheaded and to hold onto the goodwin. The patient made it to the bathroom, but later on woke up found himself on the floor, was able to get up on his feet, but again passed out again in the bathtub and was found by his and was able to walk to the bed by help of his . Later on, he went out to have a smoke often drinking orange juice. The patient again passed out outside on the patio with mild trauma to his forehead so the patient called an ambulance and was transferred to the emergency room. HOSPITAL COURSE: The patient was admitted to acute care telemetry. CT of the head was negative. Also, due to high D-dimer, had a CT angiogram of the chest, which was negative for PE. The patient was put on neuro checks and also had a Doppler of the carotids, which were unremarkable. The patient did well during the hospital course. No arrhythmia, no dizziness and no palpitations. No nausea, no vomiting. No blurred vision, ambulating and doing fine now and would like to go home. Only thing is the patient complains of pain in the lower chest and upper abdomen with pain in his muscles and this started after his fall, so all the workup does not show any indication for the syncope, except the patient might have hypoglycemic so I suggested the patient to check his blood sugar if this happens again and that is the first thing he needs to do. The patient will follow up with his primary care physician within 1 week and I told him about the incidental finding of thyroid nodule. 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 That can be done as an outpatient with his primary care. The patient also has a mild anemia that needs to be followed and repeat CBC as an outpatient. PHYSICAL EXAMINATION: VITAL SIGNS: Temperature 98.6, pulse is 66, respirations 20, blood pressure 119 /78, and oxygen saturation 96% on room air. LUNGS: Clear to auscultation. HEART: Regular S1, S2. No murmur. No S3. The abdomen is soft. The patient has eqgq-wq-yolbfupa tenderness in the upper abdomen and lower chest and the musculoskeletal syndrome. EXTREMITIES: No edema. LAB/IMAGING: Today, white blood count is 8.2, hemoglobin is 14.1, hematocrit 41, and platelet count is 122. Hemoglobin A1c is 9. Sodium is 140, potassium is 3.8, chloride is 106, CO2 is 28, BUN is 20, creatinine 0.9, calcium 7.9. Troponins are negative. DISCHARGE INSTRUCTIONS/MEDICATIONS: Discharge Medications: The patient has his own medications, which would be: 1. Losartan and Lantus insulin 30 units at bedtime. 2. Humalog 50 units with each meal. 3. Levoxyl 225. 4. Tylenol No 3 as needed. 5. The patient's TSH was high so I obtained a free T4, which is 1.1, and in normal range so I will keep the thyroid medicine the same but that can be followed up with his graduate advisor as an outpatient as well.
--- NOTE | 2016-10-20 10:52 | ED MAR SUMMARY ---
..... Medication Administration Record [facility] [address] [place] [address] Patient: LORENZO SAVAGE Visit ID: [id number] 56y, M Weight: 120.2 kg Height/Length: 76 in BMI: 32.3 ALLERGIES: No Known Drug Allergy Given 07:10/17/2016 Nita Duran, RJasN. Medication Administered: TORADOL [IVP], Dose: 30 mg IVP over 2 minute(s), Site: #1 right AC. Medication Ordered: Toradol IV 30 mg (NOW). Given 07:10/17/2016 Nita Duran, R.N. Medication Administered: DILAUDID [IVP] (HYDROMORPHONE HCL PF), Dose: 0.5 mg IVP over 2 minute(s), Site: #1 right AC. Medication Ordered: Dilaudid IV 0.5 mg (NOW).
--- NOTE | 2016-10-20 10:52 | ED DISCHARGE INSTRUCTIONS ---
Patient: LORENZO SAVAGE General Instructions [facility] VisitID: [id number] [place] [address] 56y, M Registration Date/Time: 10/17/2016 Syncope of unknown cause .12 lead EKG performed. ADDITIONAL INFORMATION Fainting:Uncertain Cause Fainting (syncope) is a temporary loss of consciousness ("passing out"). It occurs when blood flow to the brain is reduced. Near-fainting ("near-syncope") is very similar to fainting, but you do not fully "pass out". The common minor causes of fainting include: sudden fear, pain, nausea, emotional stress and overexertion. Suddenly standing up after sitting or lying for a long time can also cause fainting. The more serious causes for fainting are due to either a very slow or very fast or very slow heart beat ("arrhythmia"), other types of heart disease, dehydration, blood loss, seizure, stroke or ruptured blood vessel in the brain. Taking too much high blood pressure medicine can also cause low blood pressure and fainting. The exact cause of your episode is not certain. However, the tests today did not show any of the serious causes of fainting. Sometimes further testing is needed to find out if a serious problem exists. Therefore, it is important that you follow-up with your doctor as advised. Home Care: 1) Rest today. You may resume your normal activities when you are feeling back to normal. It is best to remain with someone who can check on you for the next 24 hours to watch for another episode of fainting. 2) If you become light-headed or dizzy, lie down immediately or sit with your head between your knees. 3) Because we do not know the exact cause of your near fainting spell, it is possible for another spell to occur without warning. Therefore, do not drive a car or operate dangerous equipment, do not take a bath alone (use a shower instead) and do not swim alone until your doctor says that you are no longer in danger of having another fainting spell. Follow Up with your doctor as advised. Get Prompt Medical Attention if any of the following occur: -- Another fainting spell occurs, which is not explained by the common causes listed above -- Chest, arm, neck, jaw, back or abdominal pain -- Shortness of breath -- Severe headache or seizure -- Blood in vomit, stools (black or red color) -- Unexpected vaginal bleeding -- Palpitations (very rapid or very slow or irregular heart beat) -- Signs of stroke: Weakness of an arm or leg or one side of the face Difficulty with speech or vision Extreme drowsiness, confusion, dizziness or fainting You have been given the following additional information: Syncope, Unk Cause (Electronically signed by Osmin Wilkinson MD 10/18/2016 21:58)
--- NOTE | 2016-10-20 10:52 | ED MED RECONCILIATION SUMMARY ---
Patient: LORENZO SAVAGE Medication Reconciliation Report [facility] VisitID: [id number] [address] [place] [address] 56y, M Registration Date/Time: 10/17/2016 Weight: 120.2 kg Height/Length: 76 in. BMI: 32.3 ALLERGIES: No Known Drug Allergy The patient's Home Medications are listed below: THE FOLLOWING MEDICATIONS NEED TO BE RECONCILED: Acetaminophen-Codeine #3 Oral HumaLOG Subcutaneous 15 units, before meals Lantus Subcutaneous 30 units, noon Levothyroxine Sodium Oral 225 mcg, daily Losartan Potassium Oral, daily The source(s) of the original Home Medication information: Not obtained. The following Medications were given to the patient in the Emergency Department: Toradol [IVP] IVP 30 mg, administered: 10/17/2016 7:45:00 AM Dilaudid [IVP] IVP 0.5 mg, administered: 10/17/2016 7:45:00 AM The following Medications were prescribed to the patient: None.
--- NOTE | 2016-10-20 10:52 | ED MED RECONCILIATION SUMMARY ---
Patient: LORENZO SAVAGE Medication Reconciliation Report [facility] VisitID: [id number] [address] [place] [address] 56y, M Registration Date/Time: 10/17/2016 Weight: 120.2 kg Height/Length: 76 in. BMI: 32.3 ALLERGIES: No Known Drug Allergy The patient's Home Medications are listed below: THE FOLLOWING MEDICATIONS NEED TO BE RECONCILED: Acetaminophen-Codeine #3 Oral HumaLOG Subcutaneous 15 units, before meals Lantus Subcutaneous 30 units, noon Levothyroxine Sodium Oral 225 mcg, daily Losartan Potassium Oral, daily The source(s) of the original Home Medication information: Not obtained. The following Medications were given to the patient in the Emergency Department: Toradol [IVP] IVP 30 mg, administered: 10/17/2016 7:45:00 AM Dilaudid [IVP] IVP 0.5 mg, administered: 10/17/2016 7:45:00 AM The following Medications were prescribed to the patient: None.
--- NOTE | 2016-10-20 10:52 | ED MAR SUMMARY ---
..... Medication Administration Record Merged With [facility] [address] [place] [address] Patient: LORENZO SAVAGE Visit ID: [id number] 56y, M Weight: 120.2 kg Height/Length: 76 in BMI: 32.3 ALLERGIES: No Known Drug Allergy Given 07:10/17/2016 Nita Duran, RJasN. Medication Administered: TORADOL [IVP], Dose: 30 mg IVP over 2 minute(s), Site: #1 right AC. Medication Ordered: Toradol IV 30 mg (NOW). Given 07:10/17/2016 Nita Duran, R.N. Medication Administered: DILAUDID [IVP] (HYDROMORPHONE HCL PF), Dose: 0.5 mg IVP over 2 minute(s), Site: #1 right AC. Medication Ordered: Dilaudid IV 0.5 mg (NOW).
== END 2016-10-18 10:00 | disposition home or self-care (01) ==
LOC: CWC SRH 04:42 → ED SRH 04:47 → TRANS SRH 08:19 → ACUTE2 SRH 08:19 → TRANS SRH 08:19 → ACUTE2 SRH 11:20
PROVIDERS: ADMIT Emergency Medicine
DX: R55 Syncope and collapse (principal); S09.90XA Unspecified injury of head, initial encounter; W18.30XA Fall on same level, unspecified, initial encounter; Y92.002 Bathroom of unspecified non-institutional (private) residence as the place of occurrence of the external cause; Y99.8 Other external cause status; E11.9 Type 2 diabetes mellitus without complications; Z79.4 Long term (current) use of insulin; E04.1 Nontoxic single thyroid nodule; E03.9 Hypothyroidism, unspecified; F17.210 Nicotine dependence, cigarettes, uncomplicated
CPT/HCPCS: 29230; 29251; 29259; 29264; 90047; 90074; 90098; 90100; 90616; 90648; 91286; 91556; 91585; 92610; 92720; 93004; 93140; 95059